=== PATIENT | female | born 1990 ===

== ENCOUNTER 2018-01-02 06:51 | Inpatient (IN) ==
[2018-01-02] MEDS ORDERED: ONDANSETRON 4 MG/2 ML VIAL IV PRN (07:17)
[2018-01-02] MEDS ORDERED: MEPERIDINE 50 MG/1 ML VIAL IV PRN (07:17)
[2018-01-02 07:27] LABS: Apearance,Urine Slightly Hazy (Clear); Bacteria,Urine Occasional /HPF (Few); Bilirubin,Urine Negative (Negative); Blood, Urine Small mg/dL (Negative); Glucose,Urine (UA) Negative (Negative); Ketones,Urine Negative (Negative); Mucus,Urine Occasional /LPF (Occasional); Nitrite,Urine Negative (Negative); Protein,Urine 30 MG/DL; RBC,Urine <1 /HPF (0-4); Squamous Epithelial Cell,Urine Few /HPF (0-10); Urine Color Yellow (Yellow); Urine Specific Gravity 1.012 (1.001-1.035); Urine Urobilinogen < 2.0 EU/DL (0.2-1.0); WBC,Urine 1 /HPF (0-6)
[2018-01-02 07:44] LABS: Basophils % 0.1 % (0.0-0.8); Eosinophils % 0.4 % (0.00-10.9); Hematocrit 38.1 VOL% (35.7-47.0); Hemoglobin 12.6 GM/DL (12.0-16.0); Immature Granulocytes Absolute 0.08 #; Lymphocytes # 1.9 10*3/uL (1.4-4.0); Lymphocytes % 23.4 % (21.3-54.2); Mean Corpuscular HGB Conc 33.1 GM/DL (32-36); Mean Corpuscular Hemoglobin 30 PG (27-34); Mean Corpuscular Volume 89.2 FL (87-102); Mean Platelet Volume 12.3 FL (9.6-12.0); Monocytes # 0.5 10*3/uL (0.11-0.8); Monocytes % 6.5 % (1.7-12.7); Neutrophils # 5.7 10*3/uL (1.4-7.4); Neutrophils % 68.6 % (38.7-73.9); Platelet Count 161 T/CUMM (130-400); Red Blood Count 4.27 MC/CUMM (3.8-5.5); Red Cell Distribution Width 13.9 % (9.3-17.3); White Blood Count 8.3 T/CUMM (4-12)
[2018-01-02 07:55] LABS: INR 0.8
[2018-01-02] MEDS ORDERED: FAMOTIDINE 20 MG/2 ML VIAL IV ONE (07:56)
[2018-01-02] MEDS ORDERED: ceFAZolin 2,000 MG in PREMIX 1 EACH IV ONE (07:56)
[2018-01-02] MEDS ORDERED: CITRIC ACID/SODIUM CITRATE 30 ML UDCUP PO ONE (07:56)
[2018-01-02 08:14] LABS: Albumin 2.6 G/DL (3.4-5.0); Bilirubin,Total 0.4 MG/DL (0.2-1.0); Calcium 8.8 MG/DL (8.5-10.1); Osmolality,Calculated 273.7 MOS/KG (273-304); Potassium 4.3 MMOL/L (3.5-5.1); Total Protein 6.6 G/DL (6.4-8.3); Uric Acid 4.7 MG/DL (2.6-6.0)
[2018-01-02] MEDS: LACTATED RINGERS 1,000 ML IV SCH ×3 (08:50→18:52)
[2018-01-02] MEDS ORDERED: OXYTOCIN/LR 20 UNIT/1,000 ML BAG IV ONE ×2 (09:10→10:47)
[2018-01-02] MEDS ORDERED: OXYTOCIN 10 UNIT/ML VIAL ONE (09:10)
[2018-01-02 10:50] LABS: Cord Arterial Blood HCO3 19.8 MMOL/L
[2018-01-02] MEDS ORDERED: MORPHINE 10 MG/10 ML VIAL ONE (10:58)
[2018-01-02] MEDS ORDERED: MIDAZOLAM 2 MG/2 ML VIAL ONE (10:59)
[2018-01-02 12:24] LABS: Apearance,Urine CLEAR (Clear); Bilirubin,Urine Negative (Negative); Blood, Urine Negative (Negative); Glucose,Urine (UA) Negative (Negative); Ketones,Urine Negative (Negative); Mucus,Urine Occasional /LPF (Occasional); Nitrite,Urine Negative (Negative); Protein,Urine Negative; RBC,Urine <1 /HPF (0-4); Squamous Epithelial Cell,Urine Occasional /HPF (0-10); Urine Color Straw (Yellow); Urine Specific Gravity 1.006 (1.001-1.035); Urine Urobilinogen < 2.0 EU/DL (0.2-1.0); WBC,Urine <1 /HPF (0-6)
[2018-01-02 12:33] LABS: Cord Venous Blood HCO3 20.7 MMOL/L; Cord Venous Blood PCO2 36.6 MMHG; Cord Venous Blood PO2 29.7 MMHG
[2018-01-02] MEDS ORDERED: BUPIVACAINE SPINAL 0.75% 2 ML AMP SPINAL ONE (13:44)
[2018-01-02] MEDS ORDERED: diphenhydrAMINE 50 MG/1 ML VIAL IV PRN (13:49)
[2018-01-02] MEDS: ceFAZolin 1,000 MG in SYRINGE 1 EACH IV SCH (17:27)
[2018-01-02 17:41] LABS: Basophils % 0.2 % (0.0-0.8); Eosinophils % 0.1 % (0.00-10.9); Hematocrit 35.7 VOL% (35.7-47.0); Hemoglobin 12.6 GM/DL (12.0-16.0); Immature Granulocytes % 0.8 %; Immature Granulocytes Absolute 0.08 #; Lymphocytes # 1.7 10*3/uL (1.4-4.0); Lymphocytes % 16.7 % (21.3-54.2); Mean Corpuscular HGB Conc 35.3 GM/DL (32-36); Mean Corpuscular Hemoglobin 31 PG (27-34); Mean Corpuscular Volume 87.5 FL (87-102); Monocytes # 0.6 10*3/uL (0.11-0.8); Neutrophils # 7.6 10*3/uL (1.4-7.4); Neutrophils % 76.2 % (38.7-73.9); Platelet Count 139 T/CUMM (130-400); Red Blood Count 4.08 MC/CUMM (3.8-5.5)
[2018-01-02] MEDS ORDERED: BISACODYL 10 MG SUPP RECTAL PRN (23:07)
[2018-01-03] MEDS: ceFAZolin 1,000 MG in SYRINGE 1 EACH IV SCH (01:26)
[2018-01-03] MEDS: LACTATED RINGERS 1,000 ML IV SCH (02:49)
[2018-01-03 06:15] LABS: Basophils % 0.1 % (0.0-0.8); Eosinophils % 0.3 % (0.00-10.9); Hematocrit 33.7 VOL% (35.7-47.0); Immature Granulocytes % 0.6 %; Immature Granulocytes Absolute 0.05 #; Lymphocytes # 1.4 10*3/uL (1.4-4.0); Lymphocytes % 17.6 % (21.3-54.2); Mean Corpuscular HGB Conc 32.6 GM/DL (32-36); Mean Corpuscular Hemoglobin 30 PG (27-34); Mean Corpuscular Volume 90.8 FL (87-102); Mean Platelet Volume 12.2 FL (9.6-12.0); Monocytes # 0.5 10*3/uL (0.11-0.8); Monocytes % 6.1 % (1.7-12.7); Neutrophils % 75.3 % (38.7-73.9); Platelet Count 107 T/CUMM (130-400); Red Blood Count 3.71 MC/CUMM (3.8-5.5); Red Cell Distribution Width 14.2 % (9.3-17.3)
[2018-01-03] MEDS: SIMETHICONE CHEW 80 MG TABLET PO PRN ×2 (06:17→19:36)
[2018-01-03] MEDS: MAGNESIUM HYDROXIDE SUSP 30 ML UDCUP PO PRN ×2 (06:17→19:36)
[2018-01-03] MEDS: IBUPROFEN 800 MG TABLET PO PRN ×2 (08:57→22:37)
[2018-01-03] MEDS: DOCUSATE SODIUM 100 MG CAPSULE PO SCH ×2 (08:57→19:36)
[2018-01-04] MEDS: DOCUSATE SODIUM 100 MG CAPSULE PO SCH ×2 (00:55→08:27)
[2018-01-04] MEDS: IBUPROFEN 800 MG TABLET PO PRN (07:09)
[2018-01-04 07:14] VITALS: BP 146/93
[2018-01-04] MEDS ORDERED: DIPH/TET/ACEL PERT BOOSTER VACCINE 0.5 ML VIAL IM ONE (09:58)
== END 2018-01-04 13:25 | disposition home or self-care (01) | DRG 766 ==
LOC: N.LDOUT 06:51 → N.LD 06:56 → N.OB 13:10
PROVIDERS: ADMIT Obstetrics & Gynecology; ATTEND Obstetrics & Gynecology